=== PATIENT | male | born 1980 | race Two or more races ===

== ENCOUNTER 2021-04-23 11:00 | Emergency (ER) | payer MEDICAID ==
[~2021-04-23] VITALS: Ht 185.4 cm; Wt 69.0 kg
[2021-04-23 11:58] VITALS: BP 125/86
[2021-04-23] MEDS ORDERED: ALBU18HF2 INH (13:41)
[2021-04-23] MEDS ORDERED: DOXY100C43 PO (13:41)
[2021-04-23] MEDS ORDERED: PRED20TA PO (13:41)
[2021-04-23] MEDS ORDERED: DEXA6TAB6 PO (14:01)
== END 2021-04-23 14:16 | disposition home or self-care (01) ==
LOC: ER 11:01
DX: U07.1 COVID-19 (principal); F12.10 Cannabis abuse, uncomplicated; F17.210 Nicotine dependence, cigarettes, uncomplicated
CPT/HCPCS: 87635; 99283; C9803